=== PATIENT | female | born 1980 | race Caucasian/White ===

== ENCOUNTER 2016-10-04 03:39 | Emergency (ER) | payer BC ==
[2016-10-04 03:49] VITALS: O2SAT 99
[2016-10-04] MEDS ORDERED: TORAdol 30 mg Injection IV ONE (03:59)
[2016-10-04] MEDS ORDERED: Lactated Ringers 1,000 ML IV ONE ×2 (03:59→04:08)
--- NOTE | 2016-10-04 04:06 | ERPHSYRPT ---
- History of Present Illness Time Seen by Provider: 10/04/16 03:45 Source: patient Patient Subjective Stated Complaint: THREE DOSES OF UNKNOWN ATBX RX FOR UTI AT [facility] - ET HAS BEEN HAVIGN HEAVINESS AND DISCOMFORT IN THE EXTREMITIES Triage Nursing Assessment: AMBULATORY TO TREATMENT AREA - STEADY GAIT - MOVES ALL EXTREMITIES WITH EQUAL STRENGTH. ALERT/ORIENTED - ANXIOUS AFFECT. SKIN FLUSHED/HOT/DRY - NO RASH/INJURY. RESPS EASY - NON-LABORED Physician History: CC: muscle aches Hx: 36 y/o patient of Dr Sloan. She was seen at [facility] 2 days ago for dysuria and vaginal itching. Had UA showing some blood and some WBC. Normal vaginal exam was reported. She was started on bactrim. She had urine culture which now is back showing skin megan and no dominant UTI. She reports feeling worsening leg muscles aches, cramping, crawling sensation. No rash or itching. No V/D. She was unable to sleep. She took APAP, ate banana without relief. No prior medication intolerances. States normal recent menses. No further hematuria. 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 Allergies/Adverse Reactions: No Known Drug Allergies Allergy (Unverified 10/04/16 03:41) Home Medications: Levothyroxine Sodium 100 Mcg [Synthroid 100 Mcg] 100 mcg PO DAILY 10/04/16 [History] Hx Tetanus, Diphtheria Vaccination/Date Given: Yes Hx Influenza Vaccination/Date Given: No Hx Pneumococcal Vaccination/Date Given: No Immunizations Up to Date: Yes - Review of Systems Constitutional: Fatigue, Malaise, No Fever, No Chills Eyes: No Symptoms Ears, Nose, & Throat: No Symptoms Respiratory: No Cough, No Dyspnea Cardiac: No Chest Pain Abdominal/Gastrointestinal: No Abdominal Pain, No Vomiting, No Diarrhea Genitourinary Symptoms: Hematuria (improved), Vaginal Itching (improved), No Urinary Retention, No Flank Pain, No , No Vaginal Bleeding Musculoskeletal: Myalgias Skin: No Pruritis, No Rash Neurological: No Headache All Other Systems: Reviewed and Negative - Past Medical History Pertinent Past Medical History: Yes Endocrine Medical History: Hypothyroidism - Past Surgical History Past Surgical History: Yes - Social History Smoking Status: Never smoker Exposure to second hand smoke: No Drug Use: none Patient Lives Alone: No - Female History Hx Last Menstrual Period: 1 WEEK - Nursing Vital Signs Nursing Vital Signs: Initial Vital Signs Temperature 8 F Temperature Source Oral Pulse Rate 68 Respiratory Rate 16 Blood Pressure [Right Arm] 126/72 Pain Intensity 8 - Physical Exam General Appearance: alert, other (fully ambulatory) Eye Exam: PERRL/EOMI Ears, Nose, Throat Exam: normal ENT inspection, moist mucous membranes Neck Exam: normal inspection, non-tender, supple Respiratory Exam: normal breath sounds, lungs clear, No respiratory distress Cardiovascular Exam: regular rate/rhythm, No murmur Gastrointestinal/Abdomen Exam: soft, No tenderness, No distention Back Exam: normal inspection, normal range of motion Extremity Exam: normal inspection, normal range of motion, tenderness (reported in leg muscles diffusely) Neurologic Exam: alert, oriented x 3, cooperative, sensation nml, No motor deficits Skin Exam: warm, dry, No rash SpO2 Interpretation: normal SpO2: 99 Oxygen Delivery: Room Air - Course Nursing assessment & vital signs reviewed: Yes Ordered Tests: Active Orders 24 hr Category Date Time Status Clean Catch Urine Specimen STAT Care 10/04/16 03:59 Active IV Insertion STAT Care 10/04/16 03:59 Active CBC W DIFF Stat Lab 10/04/16 04:02 Completed CK-Creatinine Phosphokinase Stat Lab 10/04/16 04:02 Completed CMP Stat Lab 10/04/16 04:02 Completed CULTURE,URINE Stat Lab 10/04/16 04:00 Received Erythrocyte Sedimentation Rate Stat Lab 10/04/16 04:02 Completed HCG QUALITATIVE,SERUM Stat Lab 10/04/16 04:02 Completed UA W/ MICROSCOPIC Stat Lab 10/04/16 04:00 Completed Medication Summary Generic Name Dose Route Start Last Admin Trade Name Freq PRN Reason Stop Dose Admin Lactated Ringer's 1,000 mls @ 999 mls/hr 10/04/16 03:59 10/04/16 04:13 Lactated Ringers IV 10/04/16 04:59 999 mls/hr .Q1H1M ONE Administration Discontinued Medications Generic Name Dose Route Start Last Admin Trade Name Freq PRN Reason Stop Dose Admin Lactated Ringer's Confirm 10/04/16 04:08 Lactated Ringers Administered 10/04/16 04:09 Dose 1,000 mls @ ud IV .STK-MED ONE Ketorolac Tromethamine 30 mg 10/04/16 03:59 10/04/16 04:12 Toradol 30 Mg Injection IV 10/04/16 04:00 30 mg STAT ONE Administration Ketorolac Tromethamine Confirm 10/04/16 04:08 Toradol 30 Mg Injection Administered 10/04/16 04:09 Dose 30 mg .ROUTE .STK-MED ONE Lab/Rad Data: Laboratory Result Diagrams 10/04/16 04:02 10/04/16 04:02 Laboratory Results 10/04/16 10/04/16 10/04/16 Range/Units 04:02 04:02 04:02 WBC (4.0-10.5) K/mm3 RBC (4.1-5.4) M/mm3 Hgb (12.0-16.0) gm/dl Hct (35-47) % MCV (78-100) fl MCH (26-32) pg MCHC (32-36) g/dl RDW (11.5-14.0) % Plt Count (150-450) K/mm3 MPV (6-9.5) fl Gran % (36.0-66.0) % Lymphocytes % (24.0-44.0) % Monocytes % (0.0-12.0) % Eosinophils % (0.00-5.0) % Basophils % (0.0-0.4) % Basophils # (0-0.4) ESR 13 (0-20) mm/hr Sodium 140 (136-145) mEq/L Potassium 4.3 (3.5-5.1) mEq/L Chloride 106 (98-107) mEq/L Carbon Dioxide 28.1 (21-32) mEq/L Anion Gap 10.0 (5-15) MEQ/L BUN 11 (9-20) mg/dL Creatinine 1.08 (0.55-1.30) mg/dl Estimated GFR > 60 ML/MIN Glucose 96 (70-110) MG/DL Calcium 8.8 (8.5-10.1) mg/dL Total Bilirubin 0.5 (0.2-1.0) mg/dL AST 22 (15-37) U/L ALT 16 (12-78) U/L Alkaline Phosphatase 63 (46-116) U/L Creatine Kinase 265 H (26-192) U/L Serum Total Protein 7.4 (6.4-8.2) gm/dL Albumin 3.9 (3.4-5.0) g/dL Serum , Qual NEGATIVE (Negative) Ur Collection Type Urine Color (YELLOW) Urine Appearance (CLEAR) Urine pH (5-6) Ur Specific [place] (1.005-1.025) Urine Protein (Negative) Urine Glucose (UA) (NEGATIVE) mg/dL Urine Ketones (NEGATIVE) Urine Nitrite (NEGATIVE) Urine Bilirubin (NEGATIVE) Urine Urobilinogen (0-1) mg/dL Urine WBC (Auto) (NEGATIVE) Urine RBC (Auto) (0-5) Jez/ul Urine Microscopic RBC (0-2) /HPF Urine Microscopic WBC (0-5) /HPF Ur Epithelial Cells (FEW) /HPF Urine Bacteria (NEGATIVE) /HPF Specimen Received 10/04/16 10/04/16 Range/Units 04:02 04:00 WBC 5.0 (4.0-10.5) K/mm3 RBC 3.92 L (4.1-5.4) M/mm3 Hgb 12.4 (12.0-16.0) gm/dl Hct 37.9 (35-47) % MCV 96.7 (78-100) fl MCH 31.6 (26-32) pg MCHC 32.7 (32-36) g/dl RDW 12.8 (11.5-14.0) % Plt Count 185 (150-450) K/mm3 MPV 12.1 H (6-9.5) fl Gran % 56.4 (36.0-66.0) % Lymphocytes % 25.1 (24.0-44.0) % Monocytes % 13.1 H (0.0-12.0) % Eosinophils % 5.2 H (0.00-5.0) % Basophils % 0.2 (0.0-0.4) % Basophils # 0.01 (0-0.4) ESR (0-20) mm/hr Sodium (136-145) mEq/L Potassium (3.5-5.1) mEq/L Chloride (98-107) mEq/L Carbon Dioxide (21-32) mEq/L Anion Gap (5-15) MEQ/L BUN (9-20) mg/dL Creatinine (0.55-1.30) mg/dl Estimated GFR ML/MIN Glucose (70-110) MG/DL Calcium (8.5-10.1) mg/dL Total Bilirubin (0.2-1.0) mg/dL AST (15-37) U/L ALT (12-78) U/L Alkaline Phosphatase (46-116) U/L Creatine Kinase (26-192) U/L Serum Total Protein (6.4-8.2) gm/dL Albumin (3.4-5.0) g/dL Serum , Qual (Negative) Ur Collection Type CLEAN CATCH Urine Color YELLOW (YELLOW) Urine Appearance SLIGHTLY CLOUDY (CLEAR) Urine pH 8.5 (5-6) Ur Specific [place] 1.015 (1.005-1.025) Urine Protein NEGATIVE (Negative) Urine Glucose (UA) NEGATIVE (NEGATIVE) mg/dL Urine Ketones NEGATIVE (NEGATIVE) Urine Nitrite NEGATIVE (NEGATIVE) Urine Bilirubin NEGATIVE (NEGATIVE) Urine Urobilinogen 0.2 (0-1) mg/dL Urine WBC (Auto) LARGE (NEGATIVE) Urine RBC (Auto) TRACE NON-HEM (0-5) Jez/ul Urine Microscopic RBC 0-2 (0-2) /HPF Urine Microscopic WBC 5-10 (0-5) /HPF Ur Epithelial Cells FEW (FEW) /HPF Urine Bacteria MODERATE (NEGATIVE) /HPF Specimen Received 10/04/16:0400 - Progress Progress Note: 10/04/16 04:55 CPK mildly high. UA shows some leukocytes. ESR wnl. Will treat with NSAIDS, vistaril, IVF bolus given, change from sulfa to macrobid, and follow up with Dr Sloan. Counseled pt/family regarding: lab results, diagnosis, need for follow-up - Departure Time of Disposition: 04:56 Departure Disposition: Home Clinical Impression: Myositis, UTI (urinary tract infection) Condition: Stable Critical Care Time: No Referrals: LIEN SLOAN [Primary Care Provider] - Instructions: Urinary Tract Infection (UTI) Additional Instructions: Stop sulfa. Start macrobid Rx. Ibuprofen 600mg three times a day. Plenty of oral fluids. Follow up with Dr Sloan Friday. Return for problems or concerns. Rx hydroxyzine if needed- no driving while taking. Prescriptions: Hydroxyzine HCl 1 tab PO Q6H PRN PRN #20 tablet PRN Reason: rash,rest
[2016-10-04] MEDS ORDERED: TORAdol 30 mg Injection ONE (04:08)
[2016-10-04 04:13] LABS: BASOPHIL % 0.2 % (0.0-0.4); Eosinophil % 5.2 % (0.00-5.0); Granulocytes % 56.4 % (36.0-66.0); Lymphocytes % 25.1 % (24.0-44.0); Mean Cell Volume 96.7 fl (78-100); Mean Corpuscular Hemoglobin 31.6 pg (26-32); Mean Platelet Volume 12.1 fl (6-9.5); Monocytes % 13.1 % (0.0-12.0); Platelet Count 185 K/mm3 (150-450); Red Blood Count 3.92 M/mm3 (4.1-5.4); Red Cell Distribution Width 12.8 % (11.5-14.0)
[2016-10-04 04:24] LABS: COMPLETE URINE MICROSCOPIC? YES; Collection Type CLEAN CATCH; Ph 8.5 (5-6)
[2016-10-04 04:25] LABS: Bacteria MODERATE /HPF (NEGATIVE); Epithelial Cells FEW /HPF (FEW)
[2016-10-04 04:30] LABS: ALBUMIN 3.9 g/dL (3.4-5.0); ALKALINE PHOSPHATASE 63 U/L (46-116); BILIRUBIN,TOTAL 0.5 mg/dL (0.2-1.0); BLOOD UREA NITROGEN 11 mg/dL (9-20); CHLORIDE 106 mEq/L (98-107); Carbon Dioxide 28.1 mEq/L (21-32); Glucose 96 MG/DL (70-110); Potassium 4.3 mEq/L (3.5-5.1); SGOT/AST 22 U/L (15-37); SGPT/ALT 16 U/L (12-78); SODIUM 140 mEq/L (136-145); Total Protein 7.4 gm/dL (6.4-8.2)
[2016-10-04] MEDS ORDERED: ATARAX 25 MG PO ONE (04:54)
[2016-10-04] MEDS ORDERED: ATARAX 25 MG ONE (04:57)
[2016-10-04 05:20] VITALS: BP 112/76; PULSE 83
== END 2016-10-04 05:19 | disposition home or self-care (01) ==
LOC: ED 03:39
DX: M60.9 Myositis, unspecified (principal); N39.0 Urinary tract infection, site not specified; E03.9 Hypothyroidism, unspecified
CPT/HCPCS: 36000; 36415; 80053; 81000; 82550; 84703; 85025; 85652; 87086; 96360; 96374; 99284; J1885